=== PATIENT | male | born 1995 | race Caucasian/White ===

== ENCOUNTER 2016-11-09 22:20 | Emergency (ER) | payer OTHER ==
[~2016-11-09] VITALS: Ht 175.3 cm; Wt 117.9 kg
[2016-11-09 22:35] VITALS: BP 148/98; PULSE 79; RESP 16; TEMP 98.1; O2SAT 96
--- NOTE | 2016-11-09 22:35 | NUR ---
Patient to [facility] salazar. Report given to Mana.
--- NOTE | 2016-11-09 22:35 | NUR ---
Pt came in to the ER c/o sore throat x 3 days. Pt claimed he has been diagnosed with tonsillitis by PMD. Pt reported 7 ps, last dose of Motrin at 1830 hrs with some relief. Pt afebrile, no chills, no difficulty of swallowing, no n/v. Pt with normal respiratory effort, no short of breath, lungs cta. No other remarkable symptoms noted.
--- NOTE | 2016-11-09 22:42 | NUR ---
ZEINAB De La Torre examining patient.
[2016-11-09] MEDS ORDERED: KETOROLAC TROMETHAMINE 60 MG/2 ML VIAL IM ONE (23:00)
[2016-11-09] MEDS ORDERED: DEXAMETHASONE SOD PHOSPHATE 10 MG/ML VIAL IM ONE (23:00)
--- NOTE | 2016-11-09 23:25 | NUR ---
Patient given written and verbal discharge instructions and verbalizes understanding. ER ELEVATOR ERECTOR HELPER Chloe discussed with patient the results and treatment provided. Patient in stable condition. ID arm band removed. Rx of penicillin, motrin, prednisone given. Patient educated on pain management and to follow up with PMD. Pain Scale 0/10 Opportunity for questions provided and answered.
[2016-11-09 23:26] VITALS: BP 138/88; PULSE 80; RESP 16; TEMP 98.1; O2SAT 98
== END 2016-11-09 23:25 | disposition home or self-care (01) ==
LOC: SED 22:20
DX: J03.90 Acute tonsillitis, unspecified (principal); R03.0 Elevated blood-pressure reading, without diagnosis of hypertension
CPT/HCPCS: 96372; 99283; J1885